=== PATIENT | male | born 1945 | race Native Hawaiian/Other Pacific Islander ===

== ENCOUNTER 2021-10-18 14:53 | Emergency (ER) | payer OTHER ==
[~2021-10-18] VITALS: Ht 167.6 cm; Wt 76.2 kg
[2021-10-18 14:57] VITALS: BP 136/73; TEMP 98.8
[2021-10-18 15:27] LABS: PLATELET COUNT 337 K/uL (142-355)
[2021-10-18 15:30] VITALS: BP 128/69
[2021-10-18 15:45] LABS: PARTIAL THROMBOPLASTIN TIME 26.5 SECONDS (24.5-33.6)
[2021-10-18 16:00] VITALS: BP 130/75
[2021-10-18 16:13] VITALS: BP 147/73
== END 2021-10-18 16:48 | disposition still patient (30) ==
LOC: ED 14:53 → MED/SURG 16:00 → ED 16:48
PROVIDERS: Hospitalist
DX: J44.1 Chronic obstructive pulmonary disease with (acute) exacerbation (principal); Z20.822 Contact with and (suspected) exposure to COVID-19
CPT/HCPCS: 36600; 80053; 82550; 82805; 83880; 84484; 85027; 85379; 85610; 85730; 87635; 93005; 96372; 99284; J1650; U0003